=== PATIENT | male | born 1960 | race Caucasian/White ===

== ENCOUNTER 2019-03-08 08:52 | Emergency (ER) | payer SELFPAY ==
[~2019-03-08] VITALS: Ht 182.9 cm; Wt 90.7 kg
[2019-03-08 10:06] LABS: Basophils # (auto) 0.1 uL; Basophils % (auto) 0.7 % (0.0-2.0); Eosinophils # (auto) 0.1 uL; Eosinophils % (auto) 1.1 % (0.0-7.0); Hematocrit 48.7 % (41.0-53.0); Hemoglobin 16.6 g/dL (13.5-17.5); Lymphocytes % (auto) 25.5 % (10.0-50.0); Mean Corpuscular Volume 91.1 fL (80.0-100.0); Monocytes # (auto) 0.6 uL; Monocytes % (auto) 7.2 % (0.0-12.0); Neutrophils # (auto) 5.1 uL; Neutrophils % (auto) 65.5 % (37.0-80.0); Nucleated Red Blood Cells % 0.1 %; Platelet Count (auto) 225 10^3/uL (140-450); Red Blood Cells 5.34 10^6/uL (4.5-5.90); Red Cell Distribution Width 13.6 % (11.8-14.3); White Blood Cell 7.7 10^3/uL (4.4-10.8)
[2019-03-08 10:21] LABS: Alanine Aminotransferase 50 U/L (16-61); Albumin 4.2 g/dL (3.4-5.0); Anion Gap 8 (5-15); Aspartate Aminotransferase 30 U/L (15-37); BUN/Creatinine Ratio 18.3; Blood Urea Nitrogen 15 mg/dL (7-18); Calcium 8.8 mg/dL (8.5-10.1); Carbon Dioxide 25 mmol/L (21-32); Chloride 109 mmol/L (98-107); GFR African American 124 mL/min; GFR Non-African American 103 mL/min; Glucose 104 mg/dL (74-106); Potassium 4.1 mmol/L (3.5-5.1); Sodium 142 mmol/L (136-145)
[2019-03-08 10:26] LABS: Alkaline Phosphatase 77 U/L (45-117); Bilirubin, Total 0.6 mg/dL (0.2-1.0); Total Protein 7.4 g/dL (6.4-8.2)
[2019-03-08 16:43] VITALS: BP 157/97
[2019-03-08] MEDS ORDERED: SODIUM CHLORIDE 0.9% 1,000 ML IV ONE (17:46)
[2019-03-08] MEDS ORDERED: cefTRIAXone 1GM/50ML D5W 50 ML IV ONE (18:00)
== END 2019-03-08 17:05 | disposition home or self-care (01) ==
LOC: ER 08:57
DX: H91.93 Unspecified hearing loss, bilateral (principal); I10 Essential (primary) hypertension; B18.2 Chronic viral hepatitis C
CPT/HCPCS: 36415; 70450; 80053; 84484; 85025; 93005